=== PATIENT | female | born 1985 | race Two or more races ===

== ENCOUNTER 2019-03-09 14:07 | Emergency (ER) | payer SELFPAY ==
[~2019-03-09] VITALS: Ht 154.9 cm; Wt 59.6 kg
[2019-03-09 14:24] VITALS: BP 133/84
--- NOTE | 2019-03-09 15:36 | NUR ---
SOAKING BOTH FEET IN WARM [place] WATER SOAK.
--- NOTE | 2019-03-09 16:30 | NUR ---
FEET DRIED AND INSPECTED. NO FOREIGN BODIES SEEN. NO LACERATIONS SEEN. SMALL PARTIAL SKIN BLISTER ON BALL OF LEFT FOOT NOTED. PROTECTIVE BARRIER LOTION APPLIED TO BOTH FEET. SOCKS AND SHOES PROVIDED.
--- NOTE | 2019-03-09 17:18 | NUR ---
Patient/Caregiver given discharge instructions and they have confirmed that they understand the instructions. Patient ambulatory with steady gait.
== END 2019-03-09 17:20 | disposition home or self-care (01) ==
LOC: ED 17:14
DX: F15.922 Other stimulant use, unspecified with intoxication with perceptual disturbance (principal); R45.851 Suicidal ideations; F22 Delusional disorders; B35.3 Tinea pedis; Z59.0 Homelessness; Z72.9 Problem related to lifestyle, unspecified
CPT/HCPCS: 99284